=== PATIENT | female | born 1990 | race Caucasian/White ===

== ENCOUNTER 2021-02-02 10:30 | Emergency (ER) | payer MEDICAID ==
[~2021-02-02] VITALS: Ht 165.1 cm; Wt 90.7 kg
--- NOTE | 2021-02-02 11:46 | NUR ---
bibs from home to er bed 12.aaox4. not in resp distress, breathing even and unlabored. came in for involuntary uncontrolled movement and and twitching s/p meth use. pt is nervous and anxious about the twitching. md was at the bedside for eval. orders recived, noted and carried out.
[2021-02-02] MEDS ORDERED: LORAZEPAM INJ 2 MG/ML VIAL IM ONE ×3 (12:00→15:00)
[2021-02-02] MEDS ORDERED: LORAZEPAM INJ 2 MG/ML VIAL ONE ×2 (12:06→14:03)
--- NOTE | 2021-02-02 14:49 | NUR ---
pt still moving around and twitching uncontrolably
--- NOTE | 2021-02-02 14:56 | NUR ---
pt verbalized that she is feeling better. twitching is still present but definitely better that when she came in.
--- NOTE | 2021-02-02 14:56 | NUR ---
Patient discharged to home in stable condition. Written and verbal after care instructions given. Patient verbalizes understanding of instruction. Pt ambulatory with a steady gait
[2021-02-02 14:57] VITALS: BP 127/78
== END 2021-02-02 14:58 | disposition home or self-care (01) ==
LOC: ER 10:40
DX: F15.10 Other stimulant abuse, uncomplicated (principal)
CPT/HCPCS: 96372 ×2; 99284; J2060 ×2